=== PATIENT | female | born 1970 | race Caucasian/White ===

== ENCOUNTER 2017-05-02 09:53 | Emergency (ER) | payer OTHER ==
[~2017-05-02] VITALS: Ht 152.4 cm; Wt 70.5 kg
[2017-05-02 09:55] VITALS: BP 194/104; PULSE 103; RESP 16; TEMP 98.6; O2SAT 98
--- NOTE | 2017-05-02 10:16 | PD ---
HPI Chief Complaint: Flank/Kidney Pain Time Seen by Provider: 10:02 Travel History International Travel<30 days: No Contact w/Intl Traveler<30days: No Traveled to known affect area: No History of Present Illness HPI The patient was seen and examined in the presence of the nurse. This patient has had left flank pain intermittently for the last 3 weeks. She seen 2 different doctors who thought she might have a kidney stone after evaluating urinalysis but no imaging. Symptoms wax and wane. No injury. Denies fever. She completed a course of antibiotics which didn't really help. Severity of symptoms is moderate. No alleviating factors. No Exacerbating factors PFSH Past Medical History ?: Not Past Surgical History Hysterectomy: Yes Social History Alcohol Use: No Tobacco Use: No Substance Use: No Allergies-Medications (Allergen,Severity, Reaction): Coded Allergies: No Known Allergies (Unverified , 05/02/17) Reported Meds & Prescriptions Reported Meds & Active Scripts Active No Active Prescriptions or Reported Medications Review of Systems General / Constitutional: No: Fever Eyes: No: Visual changes HENT: No: Headaches Cardiovascular: No: Chest Pain or Discomfort Respiratory: No: Shortness of Breath Gastrointestinal: No: Abdominal Pain Genitourinary: Positive: Flank Pain, No: Dysuria Musculoskeletal: Positive: Pain Skin: No Rash Neurologic: No: Weakness Psychiatric: No: Depression Endocrine: No: Polydipsia Hematologic/Lymphatic: No: Easy Bruising Physical Exam Narrative GENERAL: Emotional and tearful well-developed patient in no apparent distress. SKIN: Focused skin assessment reveals no rash and nodules. Skin is Warm and dry. HEAD: Atraumatic. Normocephalic. EYES: Pupils equal and round. No scleral icterus. No injection or drainage. ENT: No nasal bleeding or discharge. Mucous membranes pink and moist. NECK: Trachea midline. No JVD. CARDIOVASCULAR: Regular rate and rhythm. No murmur appreciated. RESPIRATORY: No accessory muscle use. Clear to auscultation. Breath sounds equal bilaterally. GASTROINTESTINAL: Abdomen soft, non-tender, nondistended. Hepatic and splenic margins not palpable. MUSCULOSKELETAL: No obvious deformities. No clubbing. No cyanosis. No edema. No midline tenderness NEUROLOGICAL: Awake and alert. No obvious cranial nerve deficits. Motor grossly within normal limits. Normal speech. PSYCHIATRIC: Anxious and sad mood and affect; insight and judgment normal. Data Data Last Documented VS Vital Signs Date Time Temp Pulse Resp B/P (MAP) Pulse Ox O2 Delivery O2 Flow Rate FiO2 05/02/17 10:37 83 20 145/85 (105) 96 05/02/17 09:55 98.6 Orders Orders Urinalysis - C+S If Indicated (05/02/17 10:13) Ct Abd/Pel W/O Iv Contrast (05/02/17 ) Labs Laboratory Tests Test 05/02/17 10:45 Urine Color YELLOW Urine Turbidity CLEAR Urine pH 5.5 Urine Specific [place] 1.020 Urine Protein 30 mg/dL Urine Glucose (UA) NEG mg/dL Urine Ketones NEG mg/dL Urine Occult Blood LARGE Urine Nitrite NEG Urine Bilirubin NEG Urine Urobilinogen LESS THAN 2.0 MG/DL Urine Leukocyte Esterase NEG Urine RBC 88 /hpf Urine WBC 4 /hpf Urine Squamous Epithelial Cells 5 /hpf Urine Mucus FEW /lpf Microscopic Urinalysis Comment CULT NOT INDICATED MDM Medical Decision Making Medical Screen Exam Complete: Yes Emergency Medical Condition: Yes Medical Record Reviewed: Yes Differential Diagnosis Sciatica, kidney stone, lumbar strain, pyelonephritis Narrative Course I have reviewed the patient's electronic medical record. Patient initially quite hypertensive. We'll reassess BP. Recheck is 145/85 Urinalysis shows hematuria without infection CT abdomen and pelvis shows 3 mm left-sided stone at the ureterovesical junction Prescribed pain and nausea medicine as well as Flomax. Recommending urology follow-up Diagnosis Primary Impression: Kidney stone on left side Additional Instructions: The patient was advised to follow up with their physician and return if they worsen. The patient was warned about potential sedation for the medications they will receive on prescription. Med/Other Pt SpecificInfo: Prescription(s) given Scripts Tamsulosin (Flomax) 0.4 Mg Cap 0.4 MG PO HS for Manage Prostate Problems, #10 CAP 0 Refills Prov: Slim Rao MD 05/02/17 Ondansetron (Zofran) 4 Mg Tab 4 MG PO Q6HR Y for NAUSEA OR VOMITING, #12 TAB 0 Refills Prov: Slim Rao MD 05/02/17 Oxycodone-Acetaminophen (Percocet) 5-325 mg Tab 1 TAB PO Q6H Y for PAIN, #20 TAB 0 Refills Prov: Slim Rao MD 05/02/17 Disposition: 01 DISCHARGE HOME Condition: Stable Slim Rao MD May 02, 2017 10:16
[2017-05-02 10:37] VITALS: BP 145/85; PULSE 83; RESP 20; O2SAT 96
[2017-05-02 11:08] LABS: BILIRUBIN, URINE NEG (NEG); BLOOD, URINE LARGE (NEG); GLUCOSE,URINE NEG (NEG); KETONE, URINE NEG (NEG); MUCUS URINE FEW /lpf (OCC); NITRITE,URINE NEG (NEG); PH, URINE 5.5 (5.0-8.5); SQUAMOUS EPITHELIAL CELL URINE 5 /hpf (0-5); URINE COLOR YELLOW (YELLW/STRAW); URINE LEUKOCYTE ESTERASE NEG (NEG)
--- NOTE | 2017-05-02 11:25 | RADRPT ---
EXAM DATE/TIME: 05/02/2017 11:09 [facility] COMPARISON: No previous studies available for comparison. INDICATIONS : Left flank pain, blood in urine ORAL CONTRAST: No oral contrast ingested. RADIATION DOSE: 7.25 CTDIvol (mGy) MEDICAL HISTORY : Endometriosis SURGICAL HISTORY : Hysterectomy. ENCOUNTER: Initial ACUITY: 1 day PAIN SCALE: 8/10 LOCATION: Left flank TECHNIQUE: Renal colic protocol. Volumetric scanning of the abdomen and pelvis was performed. Using automated exposure control and adjustment of the mA and/or kV according to patient size, radiation dose was kep t as low as reasonably achievable to obtain optimal diagnostic quality images. DICOM format image da ta is available electronically for review and comparison. FINDINGS: Right side: No evidence of hydronephrosis. No calcified stones in the collecting system or right ureter. Left side: There is mild dilation of the complex system of left kidney the left ureter down to the ureterovesica l junction where there is a 3 mm obstructing stone. There is some induration of the fat about the di stal ureter. No calcified stones in the collecting system of the left kidney. Bladder: Smooth margins. No calcifications within the lumen. Other: No calcified gallstones. The abdominal aorta is normal diameter. No dilated loops of small and larg e bowel. 2.6 cm oval intermediate density in the subcutaneous fat of the right parasagittal pelvic r egion with mean CT density 19 Hounsfield units. CONCLUSION: 1. 3 mm stone at the left ureterovesical junction causing mild dilation of the ureter and collecting system. 2. No additional calcified stones seen. 3. Subcutaneous soft tissue mass right parasagittal posterior pelvic region measuring 2.5 cm. Ramy Han MD on May 02, 2017 at 11:19 Board Certified Radiologist. This report was verified electronically.
[2017-05-02] MEDS ORDERED: PERC5TAB12 PO (11:57)
[2017-05-02] MEDS ORDERED: ZOFR4TAB PO (11:57)
[2017-05-02] MEDS ORDERED: TAMS5CAP PO (11:57)
== END 2017-05-02 12:19 | disposition home or self-care (01) ==
LOC: NEPD 09:53
DX: N20.0 Calculus of kidney (principal)
CPT/HCPCS: 74176; 81001; 99284